=== PATIENT | female | born 1980 | race Caucasian/White ===

== ENCOUNTER 2016-10-03 19:13 | Emergency (ER) | payer BC, OTHER ==
--- NOTE | 2016-10-03 19:59 | Emergency Department Record ---
History of Present Illness - General Chief Complaint: Ankle/Foot Injury Stated Complaint: RIGHT ANKLE PAIN Time Seen by Provider: 10/03/16 19:54 Source: Patient Mode of Arrival: Ambulatory Limitations: No limitations - History of Present Illness Initial Comments: 36 yo female presents to ED for evaluation of right ankle injury that occurred 2 days ago. Patient reports pain and swelling to the lateral right ankle, pain with ambulation, denies other injury. Patient reports taking Tylenol for her symptoms that somewhat helps with her pain symptoms. Patient denies health problems at her baseline. MD Complaint: Ankle injury Onset/Timin -: Days(s) Injury: Ankle: Left Type of Injury: Inversion Place: Street/outdoors Severity: Moderate Severity scale (1-10): 7 Improves With: Rest Worsens With: Weight bearing Context: Fall Associated Symptoms: Tingling, Ambulatory, Other - Related Data Home Medications Medication Instructions Recorded Confirmed Last Taken Phentermine HCl 37.5 mg PO DAILY 10/03/16 10/03/16 10/02/16 Allergies Allergy/AdvReac Type Severity Reaction Status Date / Time fexofenadine HCl AdvReac FATIGUE Verified 10/03/16 19:36 [From Anabell-D] pseudoephedrine HCl AdvReac FATIGUE Verified 10/03/16 19:36 [From Anabell-D] Travel Screening - Travel/Exposure Within Last 30 Days Have you traveled within the last 30 days?: Yes Location Detail:: [place] - Travel/Exposure Within Last Year Have you traveled outside the [place] in the last year?: No - Additonal Travel Details Have you been exposed to anyone with a communicable illness?: No - Travel Symptoms Symptom Screening: None Review of Systems Constitutional: Denies: Chills, Fever, Malaise, Night sweats Eyes: Denies: Eye discharge, Eye pain ENT: Denies: Congestion, Ear pain, Epistaxis Respiratory: Denies: Cough, Dyspnea Cardiovascular: Denies: Chest pain, Dyspnea on exertion Endocrine: Denies: Fatigue, Heat or cold intolerance Gastrointestinal: Denies: Abdominal pain, Nausea, Vomiting Genitourinary: Denies: Incontinence, Retention Musculoskeletal: Reports: Arthralgia, Joint swelling. Denies: Back pain, Gout Neurological: Denies: Abnormal gait, Headache, Seizure Psychiatric: Denies: Anxiety Hematological/Lymphatic: Denies: Anemia, Blood Clots Past Medical History - SOCIAL HISTORY Smoking Status: Current every day smoker Alcohol Use: Rare Drug Use: None - RESPIRATORY Hx Respiratory Disorders: No Hx Asthma: No - CARDIOVASCULAR Hx Cardio Disorders: No - NEURO Hx Neuro Disorders: No Hx of Migraines: Yes (occass) - GI Hx GI Disorders: No - Hx Genitourinary Disorders: Yes Comment:: poly cystic ovarian syndrome - ENDOCRINE Hx Endocrine Disorders: No - MUSCULOSKELETAL Hx Musculoskeletal Disorders: No - PSYCH Hx Psych Problems: Yes Hx Anxiety: Yes - HEMATOLOGY/ONCOLOGY Hx Hematology/Oncology Disorders: Yes Hx Anemia: Yes Family Medical History Any Significant Family History?: No Hx HTN: Father, Mother Physical Exam - General General Appearance: Alert, Oriented x3, Cooperative, No acute distress Limitations: No limitations - Head Head exam: Atraumatic, Normocephalic, Normal inspection Head exam detail: negative: Abrasion, Contusion, Lara's sign, General tenderness, Hematoma, Laceration - Eye Eye exam: Normal appearance. negative: Conjunctival injection, Periorbital swelling, Periorbital tenderness, Scleral icterus - ENT Ear exam: negative: Auricular hematoma, Auricular trauma Nasal Exam: negative: Active bleeding, Discharge, Dried blood, Foreign body Mouth exam: negative: Drooling, Laceration, Muffled voice, Tongue elevation - Neck Neck exam: Normal inspection. negative: Meningismus, Tenderness - Respiratory Respiratory exam: Normal lung sounds bilaterally. negative: Rales, Respiratory distress, Rhonchi, Stridor - Cardiovascular Cardiovascular Exam: Regular rate, Normal rhythm, Normal heart sounds Peripheral Pulses: 3+: Dorsalis Pedis (R) - Rectal Rectal exam: Deferred - exam: Deferred - Extremities Extremities exam: Joint swelling, Tenderness, Other (STS and tenderness over latonya right lateral ankle, mild TTP over the proximal fibula. Compartments are soft on examination. ). negative: Calf tenderness, Pedal edema - Back Back exam: Denies: CVA tenderness (R), CVA tenderness (L) - Neurological Neurological exam: Alert, Oriented X3. negative: Motor sensory deficit - Psychiatric Psychiatric exam: Normal affect, Normal mood - Skin Skin exam: Normal color. negative: Abrasion Type of lesion: negative: abrasion Course Vital Signs 10/03/16 19:36 Temperature 97.8 F Pulse Rate 93 H Respiratory 20 Rate Blood Pressure 129/92 Pulse Ox 95 - Reevaluation(s) Reevaluation #1: 10/03/16 20:26 Right ankle: Lateral STS, calcaneal spur, no fracture present. Right lower extremity: No acute fracture. Patient was updated on all results, will order air splint for ankle stabilization. Patient otherwise appears stable for discharge at this time. Disposition Disposition: Discharge Clinical Impression: Sprain of Right Ankle Qualifiers: Encounter type: initial encounter Involved ligament of ankle: calcaneofibular ligament Qualified Code(s): S93.411A - Sprain of calcaneofibular ligament of right ankle, initial encounter Disposition: Home, Self-Care Condition: (2) Stable Instructions: Ankle Sprain (ED) Additional Instructions: Return to ED if your child's symptoms worsen or if you have any concerns. Air splint as directed. Follow-up with your family doctor in 3-5 days as directed. Forms: Patient Portal Access Time of Disposition: 20:29
== END 2016-10-03 20:45 | disposition home or self-care (01) ==
LOC: ER 19:13
DX: S93.411A Sprain of calcaneofibular ligament of right ankle, initial encounter (principal); M79.604 Pain in right leg; X50.0XXA Overexertion from strenuous movement or load, initial encounter; Y92.410 Unspecified street and highway as the place of occurrence of the external cause
CPT/HCPCS: 99283

== ENCOUNTER 2019-07-14 11:24 | Emergency (ER) | payer BC ==
--- NOTE | 2019-07-14 11:52 | Emergency Department Record ---
History of Present Illness - General Chief complaint: ENT Stated complaint: SORE THROAT/EAR PAIN Time Seen by Provider: 07/14/19 11:33 Source: Patient Mode of Arrival: Ambulatory Limitations: No limitations - History of Present Illness Initial comments: The patient is here due to a 3 day hx of cough, congestion, ST, runny nose and ear pain. She has had no fever, CP, SOB or ANNA. The patient did not get a flu shot this year. MD complaint: Ear pain, Sore throat Onset/Timin -: Days(s) Consistency: Constant Improves with: None Worsens with: None Associated Symptoms: Cough, Sore throat, Other - Related Data Home Medications Medication Instructions Recorded Confirmed Last Taken Cetirizine HCl 10 mg PO DAILY 07/14/19 07/14/19 Unknown Venlafaxine HCl [Venlafaxine HCl 75 mg PO DAILY 07/14/19 07/14/19 Unknown ER] Previous Rx's Medication Instructions Recorded Prednisone [Prednisone 20Mg] 40 mg PO DAILY #8 tab 07/14/19 Allergies Allergy/AdvReac Type Severity Reaction Status Date / Time fexofenadine HCl AdvReac FATIGUE Verified 10/03/16 19:36 [From Anabell-D] pseudoephedrine HCl AdvReac FATIGUE Verified 10/03/16 19:36 [From Anabell-D] Travel Screening - Travel/Exposure Within Last 30 Days Have you traveled within the last 30 days?: No Review of Systems Constitutional: Reports: Malaise. Denies: Chills, Fever Eyes: Denies: Eye discharge ENT: Reports: Congestion Respiratory: Reports: Cough. Denies: Dyspnea Past Medical History - SOCIAL HISTORY Smoking Status: Current every day smoker - RESPIRATORY Hx Respiratory Disorders: No Hx Asthma: No - CARDIOVASCULAR Hx Cardio Disorders: No - NEURO Hx Neuro Disorders: No Hx of Migraines: Yes (occass) - GI Hx GI Disorders: No - Hx Genitourinary Disorders: Yes Comment:: poly cystic ovarian syndrome - ENDOCRINE Hx Endocrine Disorders: No - MUSCULOSKELETAL Hx Musculoskeletal Disorders: No - PSYCH Hx Psych Problems: Yes Hx Anxiety: Yes - HEMATOLOGY/ONCOLOGY Hx Hematology/Oncology Disorders: Yes Hx Anemia: Yes Family Medical History Any Significant Family History?: Yes Hx HTN: Father, Mother Physical Exam - General General Appearance: Alert, Oriented x3, Cooperative, No acute distress - Head Head exam: Atraumatic, Normocephalic, Normal inspection - Eye Eye exam: Normal appearance, PERRL, EOMI - ENT ENT exam: Normal exam, Mucous membranes moist, Normal external ear exam, Normal orophraynx, TM's normal bilaterally Throat exam: Normal inspection. negative: Tonsillar erythema, Tonsillar exudate - Neck Neck exam: Normal inspection, Full ROM. negative: Lymphadenopathy, Meningismus, Tenderness - Respiratory Respiratory exam: Normal lung sounds bilaterally. negative: Respiratory distress - Cardiovascular Cardiovascular Exam: Regular rate, Normal rhythm, Normal heart sounds - GI/Abdominal GI/Abdominal exam: Soft, Normal bowel sounds. negative: Tenderness - Extremities Extremities exam: Normal inspection, Full ROM, Normal capillary refill. negative: Tenderness Course Vital Signs 07/14/19 11:38 Temperature 98.3 F Pulse Rate 108 H Respiratory 20 Rate Blood Pressure 113/72 Pulse Ox 95 - Reevaluation(s) Reevaluation #1: I did discuss the neg flu test with the patient and the fact that it appears she has a viral URI. She is to use Tylenol or Motrin for fever and take the Prednisone. She is to see her PCP in 2-3 days if not better. 07/14/19 12:20 Medical Decision Making - Data Complexity MDM Data: Labs Ordered and/or Reviewed (Flu Neg.) Disposition Disposition: Discharge Clinical Impression: URI, acute Disposition: Home, Self-Care Condition: (2) Stable Instructions: Upper Respiratory Infection (ED) Additional Instructions: Please use Tylenol or Motrin for fever and take the Prednisone. Please see your doctor in 2-3 days if not better and return to the ER for any worsening symptoms. Prescriptions: Prednisone [Prednisone 20Mg] 40 mg PO DAILY #8 tab Forms: Patient Portal Access Time of Disposition: 12:22 Quality - Quality Measures Quality Measures: N/A - Blood Pressure Screening View Details: Yes Does Patient Have Any of the Following: No Blood Pressure Classification: Normal BP Reading Systolic Measurement: 113 Diastolic Measurement: 72 Screening for High Blood Pressure: < Normal BP, F/U Not Required > [[id number]]
[2019-07-14 12:12] LABS: INFLUENZA A NEGATIVE (NEGATIVE); INFLUENZA B NEGATIVE (NEGATIVE)
== END 2019-07-14 12:32 | disposition home or self-care (01) ==
LOC: ER 11:24
DX: J06.9 Acute upper respiratory infection, unspecified (principal); J02.9 Acute pharyngitis, unspecified; F17.210 Nicotine dependence, cigarettes, uncomplicated
CPT/HCPCS: 87400; 99283